=== PATIENT | male | born 1975 | race Hispanic/Latino ===

== ENCOUNTER 2018-02-22 07:57 | Inpatient (IN) | payer MEDICAID ==
[2018-02-22] MEDS ORDERED: Piperacillin/Tazobact 3.375 gm 100 ML IVPB STA (08:35)
--- NOTE | 2018-02-22 08:45 | C.PDOC ---
History Of Present Illness 42 y/o male with history of Cardiac Disease and MRSA to right lateral calf presents to ED with complaints of redness and swelling to right knee. Patient states symptoms started as a pimple that popped, developed redness and pain increased. Patient denies fever, sob, numbness or any other complaints at this time. Time Seen by Provider: 02/22/18 08:25 Chief Complaint (Nursing): Lower Extremity Problem/Injury History Per: Patient History/Exam Limitations: no limitations Onset/Duration Of Symptoms: Days Current Symptoms Are (Timing): Still Present Past Medical History Reviewed: Historical Data, Nursing Documentation, Vital Signs Vital Signs: Last Vital Signs Temp 99 F 02/22/18 11:04 Pulse 76 02/22/18 11:04 Resp 18 02/22/18 11:04 BP 135/82 02/22/18 11:04 Pulse Ox 99 02/22/18 11:04 - Medical History PMH: Hepatitis, HTN Surgical History: Coronary Stent - [facility] Procedures DRUG DETOXIFICATION (04/17/15) Family History: States: No Known Family Hx - Social History Hx Tobacco Use: Yes Hx Alcohol Use: No Hx Substance Use: Yes (Heroine) - Immunization History Hx Tetanus Toxoid Vaccination: Yes Hx Influenza Vaccination: Yes Hx Pneumococcal Vaccination: Yes Review Of Systems Constitutional: Negative for: Fever, Chills Musculoskeletal: Positive for: Leg Pain Skin: Negative for: Rash Neurological: Negative for: Weakness, Numbness Physical Exam - Physical Exam Appears: Non-toxic, No Acute Distress Skin: Warm, Dry, No Rash, Other (pustule on right proximal laeral knee with erythema and warm extending proximally and to lateral calf. ) Head: Atraumatic, Normacephalic Oral Mucosa: Moist Neck: Normal ROM, Supple Cardiovascular: Rhythm Regular Respiratory: Normal Breath Sounds, No Rales, No Rhonchi, No Wheezing Extremity: No Normal ROM (decreased rom right knee due to pain, able to flex to approx 90 degrees), No Calf Tenderness, No Deformity, Swelling (Right knee) Pulses: Left Dorsalis Pedis: Normal, Right Dorsalis Pedis: Normal Neurological/Psych: Oriented x3, Normal Motor, Normal Sensation Gait: Steady ED Course And Treatment - Laboratory Results Result Diagrams: 02/22/18 09:01 02/22/18 09:01 O2 Sat by Pulse Oximetry: 98 (RA) Progress Note: Blood work ordered. Blood culture sent. Vancomycin and Pieperacillina administered Medical Decision Making Medical Decision Making: erythema, swelling and warmth to right knee- labs, bc, antibiotics [address] Mirza, will admit to his service. [id number] Pt's counselor (Marty) at [facility] aware pt is being admitted; pt needs to bring all discharge paperwork back to [facility] upon discharge. Disposition Discussed With Dr.: Sofya Mirza Doctor Will See Patient In The: Hospital - Disposition Disposition: HOSPITALIZED Disposition Time: 10:30 Condition: STABLE - Clinical Impression Clinical Impression: Cellulitis of right knee - PA / TORNADO CHASER / Resident Statement MD/DO has reviewed & agrees with the documentation as recorded. - Scribe Statement The provider has reviewed the documentation as recorded by the Scribyelena Hernandez All medical record entries made by the Finnibyelena were at my direction and personally dictated by me. I have reviewed the chart and agree that the record accurately reflects my personal performance of the history, physical exam, medical decision making, and the department course for this patient. I have also personally directed, reviewed, and agree with the discharge instructions and disposition.
[2018-02-22] MEDS ORDERED: Piperacillin/Tazobact 3.375 gm 100 ML IVPB ONE (09:01)
[2018-02-22 09:06] LABS: BASO % 0.4 % (0.0-2.0); EOS # 0.1 K/uL (0.0-0.7); EOS % 1.2 % (0.0-4.0); LYMPH # 2.2 K/uL (1.0-4.3); LYMPH % 21.2 % (20.0-40.0); MEAN CELL VOLUME 84.8 fL (80.0-94.0); MEAN CORPUSCULAR HEMOGLOBIN 28.7 pg (27.0-31.0); MEAN CORPUSCULAR HGB CONC 33.9 g/dL (33.0-37.0); MEAN PLATELET VOLUME 8.3 fL (7.2-11.7); MONO # 0.8 K/uL (0.0-0.8); NEUT # 7.3 K/uL (1.8-7.0); NEUT % 69.2 % (50.0-75.0); NRBC % 0.1 % (0.0-2.0); RBC 5.18 Mil/uL (4.40-5.90)
[2018-02-22 09:12] LABS: WHITE BLOOD COUNT 10.6 K/uL (4.8-10.8)
[2018-02-22 09:13] LABS: HEMOGLOBIN 14.9 g/dL (12.0-18.0)
[2018-02-22 09:18] LABS: ALB/GLOB RATIO 1.2 (1.0-2.1); ALBUMIN 4.1 g/dL (3.5-5.0); ALT/SGPT 39 U/L (21-72); AST/SGOT 29 U/L (17-59); BLOOD UREA NITROGEN 12 mg/dL (9-20); GFR AFRICAN-AMERICAN > 60; GFR NON-AFRICAN AMERICAN > 60
[2018-02-22] MEDS ORDERED: Vancomycin 1 gm/NS 200 ml 1 GM/200 ML BAG IVPB ONE (09:30)
[2018-02-22 12:49] VITALS: RESP 20
[2018-02-22] MEDS ORDERED: Oxycodone/Acetaminophen 5/325 mg Tab PO PRN (16:25)
[2018-02-22] MEDS ORDERED: Sodium Chloride 0.9% 1,000 ML IV ONE (16:27)
--- NOTE | 2018-02-22 18:39 | CP.PCM.CON ---
History of Present Illness - History of Present Illness History of Present Illness: 42 y/o male with history of Cardiac Disease and MRSA to right lateral calf presents to ED with complaints of redness and swelling to right knee. Patient states symptoms started as a pimple that popped, developed redness and pain increased. Patient denies fever, sob, numbness or any other complaints at this time. - Medical History PMH: Hepatitis, HTN Surgical History: Coronary Stent Review of Systems - Review of Systems All systems: reviewed and no additional remarkable complaints except - Constitutional Constitutional: As Per HPI - EENT Eyes: absent: As Per HPI, Blind Spots, Blurred Vision, Change in Vision, Decreased Night Vision, Diplopia, Discharge, Dry Eye, Exophthalmos, Floaters, Irritation, Itchy Eyes, Loss of Peripheral Vision, Pain, Photophobia, Requires Corrective Lenses, Sees Flashes, Spots in Vision, Tunnel Vision, Other Visual Disturbances, Loss of Vision, Other Ears: absent: As Per HPI, Decreased Hearing, Ear Discharge, Ear Pain, Tinnitus, Abnormal Hearing, Disequilibrium, Dizziness, Other Nose/Mouth/Throat: absent: As Per HPI, Epistaxis, Nasal Congestion, Nasal Discharge, Nasal Obstruction, Nasal Trauma, Nose Pain, Post Nasal Drip, Sinus Pain, Sinus Pressure, Bleeding Gums, Change in Voice, Dental Pain, Dry Mouth, Dysphagia, Halitosis, Hoarsness, Lip Swelling, Mouth Lesions, Mouth Pain, Odynophagia, Sore Throat, Throat Swelling, Tongue Swelling, Facial Pain, Neck Pain, Neck Mass, Other - Cardiovascular Cardiovascular: absent: As Per HPI, Acrocyanosis, Chest Pain, Chest Pain at Rest , Chest Pain with Activity, Claudication, Diaphoresis, Dyspnea, Dyspnea on Exertion, Edema, Irregular Heart Rhythm, Pain Radiating to Arm/Neck/Jaw, Leg Edema, Leg Ulcers, Lightheadedness, Orthopnea, Palpitations, Paroxysmal Nocturnal Dyspnea, Pedal Edema, Radiating Pain, Rapid Heart Rate, Slow Heart Rate, Syncope, Other - Respiratory Respiratory: absent: As Per HPI, Cough, Dyspnea, Hemoptysis, Dyspnea on Exertion , Wheezing, Snoring, Stridor, Pain on Inspiration, Chest Congestion, Excessive Mucous Production, Change in Mucous Color, Pain with Coughing, Other - Gastrointestinal Gastrointestinal: absent: As Per HPI, Abdominal Pain, Belching, Bloating, Change in Bowel Habits, Change in Stool Character, Coffee Ground Emesis, Constipation, Cramping, Diarrhea, Dyspepsia, Dysphagia, Early Satiety, Excessive Flatus, Fecal Incontinence, Heartburn, Hematemesis, Hematochezia, Loose Stools, Melena, Nausea, Odynophagia, Temesmus, Vomiting, Other - Genitourinary Genitourinary: absent: As Per HPI, Change in Urinary Stream, Difficulty Urinating, Dysuria, Flank Pain, Hematuria, Pyuria, Nocturia, Urinary Incontinence, Urinary Frequency, Urinary Hesitance, Urinary Urgency, Voiding Freq/Small Amts, Freq UTI, Hx Renal/Bladder Calculi, Hx /Renal Surgery, Bladder Distension, Other - Musculoskeletal Musculoskeletal: As Per HPI - Integumentary Integumentary: As Per HPI, Skin Pain, Wounds - Neurological Neurological: absent: As Per HPI, Abnormal Gait, Abnormal Hearing, Abnormal Movements, Abnormal Speech, Behavioral Changes, Burning Sensations, Confusion, Convulsions, Disequilibrium, Dizziness, Numbness, Focal Weakness, Frequent Falls , Headaches, Lack of Coordination, Loss of Vision, Memory Loss, Paresthesias, Radicular Pain, Restless Legs, Sensory Deficit, Syncope, Tingling, Tremor, Vertigo, Weakness, Other Visual Disturbances, Other - Psychiatric Psychiatric: absent: As Per HPI, Abnormal Sleep Pattern, Anhedonia, Anxiety, Auditory Hallucinations, Behavioral Changes, Change in Appetite, Change in Libido, Confusion, Depression, Difficulty Concentrating, Hallucinations, Homicidal Ideation, Hopelessness, Irritability, Memory Loss, Mood Swings, Panic Attacks, Paranoia, Suicidal Ideation, Visual Hallucinations, Tactile Hallucinations, Other - Endocrine Endocrine: absent: As Per HPI, Change in Body Appearance, Change in Libido, Cold Intolorance, Deepening of Voice, Excessive Sweating, Fatigue, Flushing, Heat Intolorance, Increase in Ring/Shoe/Hat Size, Palpitations, Polydipsia, Polyphagia, Polyuria, Other - Hematologic/Lymphatic Hematologic: absent: As Per HPI, Easy Bleeding, Easy Bruising, Lymphadenopathy, Other Past Patient History - Past Social History Smoking Status: Current Some Days Smoker - CARDIAC Hx Hypertension: Yes - PULMONARY Hx Tuberculosis: No - NEUROLOGICAL Hx Seizures: No - HEENT Hx HEENT Problems: No - RENAL Hx Chronic Kidney Disease: No - ENDOCRINE/METABOLIC Hx Endocrine Disorders: No - HEMATOLOGICAL/ONCOLOGICAL Hx Cancer: No Hx Human Immunodeficiency Virus (HIV): No - INTEGUMENTARY Hx Dermatological Problems: No Other/Comment: MRSA Rt. lower leg - MUSCULOSKELETAL/RHEUMATOLOGICAL Hx Musculoskeletal Disorders: No Hx Falls: No - GASTROINTESTINAL Hx Gastrointestinal Disorders: No - GENITOURINARY/GYNECOLOGICAL Hx Sexually Transmitted Disorders: No - PSYCHIATRIC Hx Substance Use: Yes (Heroine) - SURGICAL HISTORY Hx Coronary Stent: Yes - ANESTHESIA Hx Anesthesia: No Hx Anesthesia Reactions: No Meds Allergies/Adverse Reactions: Allergies Allergy/AdvReac Type Severity Reaction Status Date / Time No Known Allergies Allergy Verified 02/22/18 08:19 - Medications Medications: Current Medications Heparin Sodium (Porcine) (Heparin) 5,000 units SC Q12 [facility]MAAN Sodium Chloride (Sodium Chloride 0.9%) 1,000 mls @ 100 mls/hr IV .Q10H ONE Stop: 02/23/18 02:26 Last Admin: 02/22/18 16:46 Dose: 100 mls/hr Ketorolac Tromethamine (Toradol) 30 mg IVP Q6H ARMAAN Last Admin: 02/22/18 16:59 Dose: 30 mg Lorazepam (Ativan) 1 mg IVP Q6H PRN PRN Reason: Anxiety Physical Exam - Constitutional Appears: Non-toxic, Chronically Ill - Head Exam Head Exam: NORMOCEPHALIC - Eye Exam Eye Exam: absent: Scleral icterus - ENT Exam ENT Exam: Mucous Membranes Dry - Neck Exam Neck exam: Negative for: Lymphadenopathy - Respiratory Exam Respiratory Exam: Decreased Breath Sounds - Cardiovascular Exam Cardiovascular Exam: REGULAR RHYTHM - GI/Abdominal Exam GI & Abdominal Exam: Diminished Bowel Sounds, Soft. absent: Tenderness - Rectal Exam Rectal Exam: Deferred - Extremities Exam Extremities exam: Positive for: pedal pulses present. Negative for: calf tenderness, normal inspection, pedal edema, tenderness Additional comments: swelling right leg/knee - abscess / cellulitis - Back Exam Back exam: absent: CVA tenderness (L), CVA tenderness (R) - Neurological Exam Neurological exam: Alert, CN II-XII Intact, Oriented x3, Reflexes Normal - Psychiatric Exam Psychiatric exam: Normal Mood - Skin Skin Exam: Dry Results - Vital Signs Recent Vital Signs: Last Vital Signs Temp 100 F H 02/22/18 16:00 Pulse 86 02/22/18 16:00 Resp 20 02/22/18 16:00 BP 115/71 02/22/18 16:00 Pulse Ox 96 02/22/18 16:00 - Labs Result Diagrams: 02/22/18 09:01 02/22/18 09:01 Labs: Laboratory Results - last 24 hr 02/22/18 02/22/18 09:01 09:01 WBC 10.6 D RBC 5.18 Hgb 14.9 D Hct 43.9 MCV 84.8 MCH 28.7 MCHC 33.9 RDW 13.0 Plt Count 195 MPV 8.3 Neut % (Auto) 69.2 Lymph % (Auto) 21.2 [place] % (Auto) 8.0 Eos % (Auto) 1.2 Baso % (Auto) 0.4 Neut # (Auto) 7.3 H Lymph # (Auto) 2.2 [place] # (Auto) 0.8 Eos # (Auto) 0.1 Baso # (Auto) 0.0 Sodium 142 Potassium 4.4 Chloride 103 Carbon Dioxide 27 Anion Gap 16 BUN 12 Creatinine 0.8 Est GFR ( Amer) > 60 Est GFR (Non-Af Amer) > 60 Random Glucose 83 Calcium 9.0 Total Bilirubin 1.1 AST 29 ALT 39 Alkaline Phosphatase 74 Total Protein 7.6 Albumin 4.1 Globulin 3.5 Albumin/Globulin Ratio 1.2 Assessment & Plan (1) Cellulitis of right knee Status: Acute (2) Drug dependence Status: Acute (3) Hepatitis C Status: Acute (4) History of PR (myocardial infarction) Status: Acute (5) Opioid dependence Status: Acute - Assessment and Plan (Free Text) Assessment: cont IV antibiotics needs I and D
--- NOTE | 2018-02-22 18:49 | CP.PCM.HP ---
Present on Admission - Present on Admission Any Indicators Present on Admission: No Past Patient History - Past Social History Smoking Status: Current Some Days Smoker - CARDIAC Hx Hypertension: Yes - PULMONARY Hx Tuberculosis: No - NEUROLOGICAL Hx Seizures: No - HEENT Hx HEENT Problems: No - RENAL Hx Chronic Kidney Disease: No - ENDOCRINE/METABOLIC Hx Endocrine Disorders: No - HEMATOLOGICAL/ONCOLOGICAL Hx Cancer: No Hx Human Immunodeficiency Virus (HIV): No - INTEGUMENTARY Hx Dermatological Problems: No Other/Comment: MRSA Rt. lower leg - MUSCULOSKELETAL/RHEUMATOLOGICAL Hx Musculoskeletal Disorders: No Hx Falls: No - GASTROINTESTINAL Hx Gastrointestinal Disorders: No - GENITOURINARY/GYNECOLOGICAL Hx Sexually Transmitted Disorders: No - PSYCHIATRIC Hx Substance Use: Yes (Heroine) - SURGICAL HISTORY Hx Coronary Stent: Yes - ANESTHESIA Hx Anesthesia: No Hx Anesthesia Reactions: No Meds Allergies/Adverse Reactions: Allergies Allergy/AdvReac Type Severity Reaction Status Date / Time No Known Allergies Allergy Verified 02/22/18 08:19 Results - Vital Signs Recent Vital Signs: Last Vital Signs Temp 100 F H 02/22/18 16:00 Pulse 86 02/22/18 16:00 Resp 20 02/22/18 16:00 BP 115/71 02/22/18 16:00 Pulse Ox 96 02/22/18 16:00 - Labs Result Diagrams: 02/22/18 09:01 02/22/18 09:01 Labs: Laboratory Results - last 24 hr 02/22/18 02/22/18 09:01 09:01 WBC 10.6 D RBC 5.18 Hgb 14.9 D Hct 43.9 MCV 84.8 MCH 28.7 MCHC 33.9 RDW 13.0 Plt Count 195 MPV 8.3 Neut % (Auto) 69.2 Lymph % (Auto) 21.2 [place]ett[place] % (Auto) 8.0 Eos % (Auto) 1.2 Baso % (Auto) 0.4 Neut # (Auto) 7.3 H Lymph # (Auto) 2.2 [place] # (Auto) 0.8 Eos # (Auto) 0.1 Baso # (Auto) 0.0 Sodium 142 Potassium 4.4 Chloride 103 Carbon Dioxide 27 Anion Gap 16 BUN 12 Creatinine 0.8 Est GFR ( Amer) > 60 Est GFR (Non-Af Amer) > 60 Random Glucose 83 Calcium 9.0 Total Bilirubin 1.1 AST 29 ALT 39 Alkaline Phosphatase 74 Total Protein 7.6 Albumin 4.1 Globulin 3.5 Albumin/Globulin Ratio 1.2 Assessment & Plan - Assessment and Plan (Free Text) Plan: protonix lovenox vanco zosyn id consult mx as ordered
[2018-02-22] MEDS: Vancomycin 1 gm/NS 200 ml 1 GM/200 ML BAG IVPB SCH (23:21)
[2018-02-23 07:42] LABS: BASO % 0.4 % (0.0-2.0); EOS # 0.1 K/uL (0.0-0.7); EOS % 0.7 % (0.0-4.0); HEMOGLOBIN 13.6 g/dL (12.0-18.0); LYMPH # 2.1 K/uL (1.0-4.3); LYMPH % 21.9 % (20.0-40.0); MEAN CELL VOLUME 84.5 fL (80.0-94.0); MEAN CORPUSCULAR HEMOGLOBIN 29.2 pg (27.0-31.0); MEAN CORPUSCULAR HGB CONC 34.5 g/dL (33.0-37.0); MEAN PLATELET VOLUME 8.4 fL (7.2-11.7); MONO # 0.7 K/uL (0.0-0.8); MONO % 7.5 % (0.0-10.0); NEUT # 6.5 K/uL (1.8-7.0); NEUT % 69.5 % (50.0-75.0); RBC 4.68 Mil/uL (4.40-5.90); RED CELL DISTRIBUTION WIDTH 12.8 % (11.5-14.5); WHITE BLOOD COUNT 9.4 K/uL (4.8-10.8)
[2018-02-23 08:06] LABS: ALB/GLOB RATIO 1.1 (1.0-2.1); ALBUMIN 3.5 g/dL (3.5-5.0); ALT/SGPT 39 U/L (21-72); AST/SGOT 22 U/L (17-59); BLOOD UREA NITROGEN 10 mg/dL (9-20); CALCIUM 8.4 mg/dl (8.6-10.4); GFR AFRICAN-AMERICAN > 60; GFR NON-AFRICAN AMERICAN > 60
[2018-02-23] MEDS: Vancomycin 1 gm/NS 200 ml 1 GM/200 ML BAG IVPB SCH ×2 (10:04→22:37)
--- NOTE | 2018-02-23 14:47 | CP.PCM.PN ---
Subjective - Date & Time of Evaluation Date of Evaluation: 02/23/18 Time of Evaluation: 09:20 - Subjective Subjective: clinically same Objective - Vital Signs/Intake and Output Vital Signs (last 24 hours): Temp Pulse Resp BP Pulse Ox 98.1 F 102 H 20 131/89 97 02/23/18 08:15 02/23/18 08:15 02/23/18 08:15 02/23/18 08:15 02/23/18 13:34 - Medications Medications: Current Medications Heparin Sodium (Porcine) (Heparin) 5,000 units SC Q12 ARMAAN Last Admin: 02/23/18 10:04 Dose: 5,000 units Vancomycin/Sodium Chloride (Vancomycin 1 Gm/Ns 200 Ml) 1 gm in 200 mls @ 133.333 mls/hr IVPB Q12H ARMAAN PRN Reason: Protocol Stop: 02/27/18 23:01 Last Admin: 02/23/18 10:04 Dose: 133.333 mls/hr Ketorolac Tromethamine (Toradol) 30 mg IVP Q6H [facility]MA[facility] Last Admin: 02/23/18 10:05 Dose: 30 mg Lorazepam (Ativan) 1 mg IVP Q6H PRN PRN Reason: Anxiety Nicotine (Nicoderm Cq) 1 patch TD DAILY [facility] Last Admin: 02/23/18 10:04 Dose: 1 patch - Labs Labs: 02/23/18 07:30 02/23/18 07:30 - Constitutional Appears: Well - Head Exam Head Exam: ATRAUMATIC, NORMAL INSPECTION, NORMOCEPHALIC - Eye Exam Eye Exam: EOMI, Normal appearance, PERRL Pupil Exam: NORMAL ACCOMODATION, PERRL - ENT Exam ENT Exam: Mucous Membranes Moist, Normal Exam - Neck Exam Neck Exam: Full ROM, Normal Inspection. absent: Lymphadenopathy - Respiratory Exam Respiratory Exam: Decreased Breath Sounds - Cardiovascular Exam Cardiovascular Exam: REGULAR RHYTHM, +S1, +S2 - GI/Abdominal Exam GI & Abdominal Exam: Soft, Diminished Bowel Sounds - Rectal Exam Rectal Exam: Deferred Assessment and Plan - Assessment and Plan (Free Text) Plan: swelling and redness is better May need IND as per Dr. Rae Continue vancomycin Continue GI and DVT prophylaxis Patient has improved significantly
--- NOTE | 2018-02-23 15:32 | CP.PCM.PN ---
Subjective - Date & Time of Evaluation Date of Evaluation: 02/23/18 Time of Evaluation: 09:00 - Subjective Subjective: cultures neg thus far' may need I and D Objective - Vital Signs/Intake and Output Vital Signs (last 24 hours): Temp Pulse Resp BP Pulse Ox 98.1 F 102 H 20 131/89 97 02/23/18 08:15 02/23/18 08:15 02/23/18 08:15 02/23/18 08:15 02/23/18 13:34 - Medications Medications: Current Medications Heparin Sodium (Porcine) (Heparin) 5,000 units SC Q12 [facility]MA[facility] Last Admin: 02/23/18 10:04 Dose: 5,000 units Vancomycin/Sodium Chloride (Vancomycin 1 Gm/Ns 200 Ml) 1 gm in 200 mls @ 133.333 mls/hr IVPB Q12H [facility]MAAN PRN Reason: Protocol Stop: 02/27/18 23:01 Last Admin: 02/23/18 10:04 Dose: 133.333 mls/hr Ketorolac Tromethamine (Toradol) 30 mg IVP Q6H [facility]MA[facility] Last Admin: 02/23/18 10:05 Dose: 30 mg Lorazepam (Ativan) 1 mg IVP Q6H PRN PRN Reason: Anxiety Nicotine (Nicoderm Cq) 1 patch TD DAILY [facility] Last Admin: 02/23/18 10:04 Dose: 1 patch - Labs Labs: 02/23/18 07:30 02/23/18 07:30 - Constitutional Appears: Non-toxic, Chronically Ill - Head Exam Head Exam: NORMOCEPHALIC - Eye Exam Eye Exam: PERRL - ENT Exam ENT Exam: Mucous Membranes Dry Assessment and Plan (1) Cellulitis of right knee Status: Acute (2) Drug dependence Status: Acute (3) Hepatitis C Status: Acute (4) History of [place] (myocardial infarction) Status: Acute (5) Opioid dependence Status: Acute
[2018-02-24 06:47] LABS: BASO % 0.6 % (0.0-2.0); EOS # 0.1 K/uL (0.0-0.7); EOS % 1.9 % (0.0-4.0); HEMOGLOBIN 13.5 g/dL (12.0-18.0); LYMPH # 1.6 K/uL (1.0-4.3); LYMPH % 21.3 % (20.0-40.0); MEAN CELL VOLUME 83.8 fL (80.0-94.0); MEAN CORPUSCULAR HGB CONC 35.8 g/dL (33.0-37.0); MEAN PLATELET VOLUME 8.2 fL (7.2-11.7); MONO # 0.6 K/uL (0.0-0.8); MONO % 8.5 % (0.0-10.0); NEUT # 5.1 K/uL (1.8-7.0); NEUT % 67.7 % (50.0-75.0); RBC 4.49 Mil/uL (4.40-5.90); WHITE BLOOD COUNT 7.6 K/uL (4.8-10.8)
[2018-02-24 07:14] LABS: ALB/GLOB RATIO 1.1 (1.0-2.1); ALBUMIN 3.5 g/dL (3.5-5.0); ALT/SGPT 39 U/L (21-72); AST/SGOT 31 U/L (17-59); BLOOD UREA NITROGEN 10 mg/dL (9-20); CALCIUM 8.7 mg/dl (8.6-10.4); GFR AFRICAN-AMERICAN > 60; GFR NON-AFRICAN AMERICAN > 60
[2018-02-24] MEDS: Vancomycin 1 gm/NS 200 ml 1 GM/200 ML BAG IVPB SCH ×2 (10:46→22:16)
--- NOTE | 2018-02-24 12:44 | CP.PCM.PN ---
Subjective - Date & Time of Evaluation Date of Evaluation: 02/24/18 Time of Evaluation: 08:00 - Subjective Subjective: improved swelling adn redness Objective - Vital Signs/Intake and Output Vital Signs (last 24 hours): Temp Pulse Resp BP Pulse Ox 98.9 F 67 20 118/76 96 02/24/18 07:51 02/24/18 07:51 02/24/18 07:51 02/24/18 07:51 02/24/18 08:03 Intake and Output: 02/24/18 02/24/18 06:59 18:59 Intake Total 500 240 Balance 500 240 - Medications Medications: Current Medications Heparin Sodium (Porcine) (Heparin) 5,000 units SC Q12 [facility]MAAN Last Admin: 02/24/18 10:41 Dose: 5,000 units Vancomycin/Sodium Chloride (Vancomycin 1 Gm/Ns 200 Ml) 1 gm in 200 mls @ 133.333 mls/hr IVPB Q12H [facility] PRN Reason: Protocol Stop: 02/27/18 23:01 Last Admin: 02/24/18 10:46 Dose: 133.333 mls/hr Ketorolac Tromethamine (Toradol) 30 mg IVP Q6H [facility] Last Admin: 02/24/18 10:41 Dose: 30 mg Lorazepam (Ativan) 1 mg IVP Q6H PRN PRN Reason: Anxiety Nicotine (Nicoderm Cq) 1 patch TD DAILY [facility] Last Admin: 02/24/18 10:41 Dose: 1 patch - Labs Labs: 02/24/18 06:37 02/24/18 06:37 - Constitutional Appears: Well - Head Exam Head Exam: ATRAUMATIC, NORMAL INSPECTION, NORMOCEPHALIC - Eye Exam Eye Exam: EOMI, Normal appearance, PERRL Pupil Exam: NORMAL ACCOMODATION, PERRL - ENT Exam ENT Exam: Mucous Membranes Moist, Normal Exam - Neck Exam Neck Exam: Full ROM, Normal Inspection. absent: Lymphadenopathy - Respiratory Exam Respiratory Exam: Decreased Breath Sounds - Cardiovascular Exam Cardiovascular Exam: REGULAR RHYTHM, +S1, +S2 - GI/Abdominal Exam GI & Abdominal Exam: Soft, Diminished Bowel Sounds - Rectal Exam Rectal Exam: Deferred Assessment and Plan (1) Cellulitis of right knee Status: Acute (2) Chest pain Status: Acute (3) Drug abuse Status: Acute (4) Drug dependence Status: Acute (5) Hepatitis C Status: Acute (6) History of [place] (myocardial infarction) Status: Acute (7) Hypertension Status: Acute (8) Opioid dependence Status: Acute - Assessment and Plan (Free Text) Plan: iv vanco vanco level asper id coti same dischargeplanning may need iv vanco for 12 days zion as ordered will followupw ith id
--- NOTE | 2018-02-24 14:33 | CP.PCM.PN ---
Subjective - Date & Time of Evaluation Date of Evaluation: 02/24/18 Time of Evaluation: 09:00 - Subjective Subjective: leg is swollen warm and tender may need I and D Objective - Vital Signs/Intake and Output Vital Signs (last 24 hours): Temp Pulse Resp BP Pulse Ox 98.9 F 67 20 118/76 96 02/24/18 07:51 02/24/18 07:51 02/24/18 07:51 02/24/18 07:51 02/24/18 08:03 Intake and Output: 02/24/18 02/24/18 06:59 18:59 Intake Total 500 240 Balance 500 240 - Medications Medications: Current Medications Heparin Sodium (Porcine) (Heparin) 5,000 units SC Q12 [facility] Last Admin: 02/24/18 10:41 Dose: 5,000 units Vancomycin/Sodium Chloride (Vancomycin 1 Gm/Ns 200 Ml) 1 gm in 200 mls @ 133.333 mls/hr IVPB Q12H [facility] PRN Reason: Protocol Stop: 02/27/18 23:01 Last Admin: 02/24/18 10:46 Dose: 133.333 mls/hr Ketorolac Tromethamine (Toradol) 30 mg IVP Q6H [facility] Last Admin: 02/24/18 10:41 Dose: 30 mg Lorazepam (Ativan) 1 mg IVP Q6H PRN PRN Reason: Anxiety Nicotine (Nicoderm Cq) 1 patch TD DAILY [facility] Last Admin: 02/24/18 10:41 Dose: 1 patch Pneumococcal Polyvalent Vaccine (Pneumovax 23 Vaccine) 0.5 ml IM .ONCE ONE Stop: 02/27/18 10:01 - Labs Labs: 02/24/18 06:37 02/24/18 06:37 - Constitutional Appears: Non-toxic, Chronically Ill - Head Exam Head Exam: NORMOCEPHALIC - Eye Exam Eye Exam: PERRL - ENT Exam ENT Exam: Mucous Membranes Dry - Neck Exam Neck Exam: absent: Lymphadenopathy - Respiratory Exam Respiratory Exam: Decreased Breath Sounds - Cardiovascular Exam Cardiovascular Exam: REGULAR RHYTHM - GI/Abdominal Exam GI & Abdominal Exam: Distended, Soft - Rectal Exam Rectal Exam: Deferred - Exam Exam: NORMAL INSPECTION - Extremities Exam Extremities Exam: Tenderness. absent: Calf Tenderness, Normal Inspection, Pedal Edema - Back Exam Back Exam: absent: CVA tenderness (L), CVA tenderness (R) - Neurological Exam Neurological Exam: Alert, Awake, CN II-XII Intact, Oriented x3 Neuro motor strength exam: Left Upper Extremity: 5, Right Upper Extremity: 5, Left Lower Extremity: 5, Right Lower Extremity: 5 - Psychiatric Exam Psychiatric exam: Normal Mood - Skin Skin Exam: Dry Assessment and Plan (1) Cellulitis of right knee Status: Acute (2) Drug dependence Status: Acute (3) Hepatitis C Status: Acute (4) History of CT (myocardial infarction) Status: Acute (5) Opioid dependence Status: Acute
--- NOTE | 2018-02-24 16:24 | RAD ---
PROCEDURE: Right Knee Radiographs. HISTORY: Right knee abscess COMPARISON: None. FINDINGS: BONES: Normal. No fracture. JOINTS: Normal. No osteoarthritis. JOINT EFFUSION: Small suprapatellar joint effusion. OTHER FINDINGS: None. IMPRESSION: No evidence of acute displaced fracture nor dislocation. Small suprapatellar joint effusion.
[2018-02-25] MEDS: Vancomycin 1 gm/NS 200 ml 1 GM/200 ML BAG IVPB SCH ×2 (10:20→22:25)
--- NOTE | 2018-02-25 17:12 | CP.PCM.PN ---
Subjective - Date & Time of Evaluation Date of Evaluation: 02/25/18 Time of Evaluation: 07:40 - Subjective Subjective: clinically same Objective - Vital Signs/Intake and Output Vital Signs (last 24 hours): Temp Pulse Resp BP Pulse Ox 98.4 F 66 20 127/77 98 02/25/18 15:12 02/25/18 15:12 02/25/18 15:12 02/25/18 15:12 02/25/18 15:12 Intake and Output: 02/25/18 02/25/18 06:59 18:59 Intake Total 1140 600 Balance 1140 600 - Medications Medications: Current Medications Heparin Sodium (Porcine) (Heparin) 5,000 units SC Q12 [facility] Last Admin: 02/25/18 10:20 Dose: 5,000 units Vancomycin/Sodium Chloride (Vancomycin 1 Gm/Ns 200 Ml) 1 gm in 200 mls @ 133.333 mls/hr IVPB Q12H [facility] PRN Reason: Protocol Stop: 02/27/18 23:01 Last Admin: 02/25/18 10:20 Dose: 133.333 mls/hr Ketorolac Tromethamine (Toradol) 30 mg IVP Q6H [facility] Last Admin: 02/25/18 10:21 Dose: 30 mg Lorazepam (Ativan) 1 mg IVP Q6H PRN PRN Reason: Anxiety Nicotine (Nicoderm Cq) 1 patch TD DAILY [facility] Last Admin: 02/25/18 10:20 Dose: 1 patch Pneumococcal Polyvalent Vaccine (Pneumovax 23 Vaccine) 0.5 ml IM .ONCE ONE Stop: 02/27/18 10:01 - Labs Labs: 02/24/18 06:37 02/24/18 06:37 - Constitutional Appears: Well - Head Exam Head Exam: ATRAUMATIC, NORMAL INSPECTION, NORMOCEPHALIC - Eye Exam Eye Exam: EOMI, Normal appearance, PERRL Pupil Exam: NORMAL ACCOMODATION, PERRL - ENT Exam ENT Exam: Mucous Membranes Moist, Normal Exam - Neck Exam Neck Exam: Full ROM, Normal Inspection. absent: Lymphadenopathy - Respiratory Exam Respiratory Exam: Decreased Breath Sounds - Cardiovascular Exam Cardiovascular Exam: REGULAR RHYTHM, +S1, +S2 - GI/Abdominal Exam GI & Abdominal Exam: Soft, Diminished Bowel Sounds - Rectal Exam Rectal Exam: Deferred Assessment and Plan (1) Cellulitis of right knee Status: Acute (2) Chest pain Status: Acute (3) Drug abuse Status: Acute (4) Drug dependence Status: Acute (5) Hepatitis C Status: Acute (6) History of [place] (myocardial infarction) Status: Acute (7) Hypertension Status: Acute (8) Opioid dependence Status: Acute - Assessment and Plan (Free Text) Plan: Patient's knee swelling has significantly got better but patient still has a small patch on on the right in the upper part of the knee the patient needs may need IND although patient is getting better with the vancomycin patient advised that we will plan out for the discharge patient may need IV antibiotic at home continue same follow-up with the surgeon along with ID consult
--- NOTE | 2018-02-26 05:52 | CP.PCM.PN ---
Subjective - Date & Time of Evaluation Date of Evaluation: 02/26/18 Time of Evaluation: 05:48 - Subjective Subjective: PGY-[address] Mirza's service: Pt seen and examined at bedside. Nursing reports no acute events overnight. Patient reports cellulitis much improved since admission. He states he is able to ambulate on the leg without difficulty. He denies fever, chills, pain/ weakness/numbness/tingling in the extremity. Patient is a 42 yo M, with pmhx of HTN, Hep C and [place] with LAD stent placement ( 2012), who presented on 02/22/18 to ED for with complaints of erythema/edema of right knee. Patient states that pain started "approximately a week ago" when he "popped a pimple" on his right knee. Over week the area became increasingly red and painful. Denied fevers/chills, numbness/tingling, or extremity weakness. Pmhx: as above Surg hx: Catheterization (2012) Fam hx: Paternal Grandfather (30's) and Maternal Grandfather (unsure of age) had heart attacks as well as father (30's), Dad and paternal grandfather have prostate ca and colon ca (unsure of age of diagnosis) Social hx: 1/2 ppd of tobacco, occasional drinking, abuses cocaine and heroin Objective - Vital Signs/Intake and Output Vital Signs (last 24 hours): Temp Pulse Resp BP Pulse Ox 98.3 F 71 20 120/77 98 02/25/18 23:48 02/25/18 23:48 02/25/18 23:48 02/25/18 23:48 02/25/18 23:48 Intake and Output: 02/25/18 02/26/18 18:59 06:59 Intake Total 600 700 Balance 600 700 - Medications Medications: Current Medications Ketorolac Tromethamine (Toradol) 30 mg IVP Q6H [facility] Last Admin: 02/26/18 05:05 Dose: Not Given Lorazepam (Ativan) 1 mg IVP Q6H PRN PRN Reason: Anxiety Nicotine (Nicoderm Cq) 1 patch TD DAILY [facility] Last Admin: 02/25/18 10:20 Dose: 1 patch Pneumococcal Polyvalent Vaccine (Pneumovax 23 Vaccine) 0.5 ml IM .ONCE ONE Stop: 02/27/18 10:01 - Labs Labs: 02/24/18 06:37 02/24/18 06:37 - Constitutional Appears: Non-toxic, No Acute Distress - Head Exam Head Exam: ATRAUMATIC, NORMAL INSPECTION - Eye Exam Eye Exam: EOMI. absent: Scleral icterus Pupil Exam: PERRL - ENT Exam ENT Exam: Mucous Membranes Moist - Respiratory Exam Respiratory Exam: Clear to Ausculation Bilateral, NORMAL BREATHING PATTERN - Cardiovascular Exam Cardiovascular Exam: REGULAR RHYTHM, +S1 - GI/Abdominal Exam GI & Abdominal Exam: Soft, Normal Bowel Sounds. absent: Tenderness - Extremities Exam Extremities Exam: absent: Calf Tenderness, Normal Inspection, Pedal Edema, Tenderness Additional comments: Cellulitis outline greatly improved since admission No pain in extremity - Back Exam Back Exam: absent: CVA tenderness (L), CVA tenderness (R) - Neurological Exam Neurological Exam: Alert, Awake, Oriented x3 - Psychiatric Exam Psychiatric exam: Normal Affect, Normal Mood - Skin Skin Exam: Normal Color, Warm Assessment and Plan - Assessment and Plan (Free Text) Plan: Cellulitis of right knee Admit to med/surg Afebrile; No WBC Rt Knee XR (02/24/18): No evidence of acute displaced fx or dislocation. Small suprapatellar joint effusion (see full report) Toradol 30mg IV Q6H [facility] Dr. Maza, ID consultants intern, help appreciated: -Vancomycin 1 gm IV Q12H - May need I&D Blood cultures negative x 3 days Hx HTN Well controlled Pt denies taking home medications EtOH detox Pt was in detox at [facility] prior to admission Ativan 1mg IV Q6H PRN Hx of Hepatitis C Hep C AB positive (2014) Patient denies treatment Tobacco Abuse D/O Nicoderm Patch Prophylaxis SCDs C/I Pepcid 20mg PO BID VTE C/I due to toradol at this time; pt mobile Clifford Mina PGY-2 All Medical management per Dr. Mirza
[2018-02-26] MEDS: Vancomycin 1 gm/NS 200 ml 1 GM/200 ML BAG IVPB SCH ×2 (10:46→22:56)
[2018-02-26 11:06] LABS: BASO % 0.4 % (0.0-2.0); EOS # 0.1 K/uL (0.0-0.7); EOS % 1.7 % (0.0-4.0); HEMOGLOBIN 13.7 g/dL (12.0-18.0); LYMPH # 1.6 K/uL (1.0-4.3); MEAN CELL VOLUME 83.9 fL (80.0-94.0); MEAN CORPUSCULAR HEMOGLOBIN 29.3 pg (27.0-31.0); MEAN CORPUSCULAR HGB CONC 34.9 g/dL (33.0-37.0); MEAN PLATELET VOLUME 8.1 fL (7.2-11.7); MONO # 0.5 K/uL (0.0-0.8); MONO % 7.1 % (0.0-10.0); NEUT # 4.6 K/uL (1.8-7.0); NEUT % 67.8 % (50.0-75.0); RBC 4.66 Mil/uL (4.40-5.90); RED CELL DISTRIBUTION WIDTH 12.6 % (11.5-14.5); WHITE BLOOD COUNT 6.8 K/uL (4.8-10.8)
[2018-02-26 11:22] LABS: ALB/GLOB RATIO 1.1 (1.0-2.1); ALBUMIN 3.6 g/dL (3.5-5.0); ALT/SGPT 33 U/L (21-72); AST/SGOT 29 U/L (17-59); BLOOD UREA NITROGEN 13 mg/dL (9-20); CALCIUM 8.7 mg/dl (8.6-10.4); GFR AFRICAN-AMERICAN > 60; GFR NON-AFRICAN AMERICAN > 60
--- NOTE | 2018-02-26 12:02 | CP.PCM.PN ---
Subjective - Date & Time of Evaluation Date of Evaluation: 02/26/18 Time of Evaluation: 08:00 - Subjective Subjective: nad rx in progress Objective - Vital Signs/Intake and Output Vital Signs (last 24 hours): Temp Pulse Resp BP Pulse Ox 98.0 F 70 20 126/87 97 02/26/18 08:03 02/26/18 08:03 02/26/18 08:03 02/26/18 08:03 02/26/18 08:03 Intake and Output: 02/26/18 02/26/18 06:59 18:59 Intake Total 700 Balance 700 - Medications Medications: Current Medications Famotidine (Pepcid) 20 mg PO BID [facility] Last Admin: 02/26/18 10:48 Dose: Not Given Vancomycin/Sodium Chloride (Vancomycin 1 Gm/Ns 200 Ml) 1 gm in 200 mls @ 166.6 mls/hr IVPB Q12H [facility] PRN Reason: Protocol Stop: 03/03/18 11:01 Last Admin: 02/26/18 10:46 Dose: 166.6 mls/hr Lorazepam (Ativan) 1 mg IVP Q6H PRN PRN Reason: Anxiety Nicotine (Nicoderm Cq) 1 patch TD DAILY [facility] Last Admin: 02/26/18 10:46 Dose: 1 patch Pneumococcal Polyvalent Vaccine (Pneumovax 23 Vaccine) 0.5 ml IM .ONCE ONE Stop: 02/27/18 10:01 - Labs Labs: 02/26/18 10:45 02/26/18 10:45 - Constitutional Appears: Non-toxic, Chronically Ill - Head Exam Head Exam: NORMOCEPHALIC - Eye Exam Eye Exam: PERRL - ENT Exam ENT Exam: Mucous Membranes Dry - Neck Exam Neck Exam: absent: Lymphadenopathy - Respiratory Exam Respiratory Exam: Decreased Breath Sounds - Cardiovascular Exam Cardiovascular Exam: REGULAR RHYTHM - GI/Abdominal Exam GI & Abdominal Exam: Distended Assessment and Plan (1) Cellulitis of right knee Status: Acute (2) Drug dependence Status: Acute (3) Hepatitis C Status: Acute (4) History of [place] (myocardial infarction) Status: Acute (5) Opioid dependence Status: Acute
--- NOTE | 2018-02-26 12:42 | CP.PCM.PN ---
Subjective - Date & Time of Evaluation Date of Evaluation: 02/26/18 Time of Evaluation: 07:40 - Subjective Subjective: clinically same Objective - Vital Signs/Intake and Output Vital Signs (last 24 hours): Temp Pulse Resp BP Pulse Ox 98.0 F 70 20 126/87 97 02/26/18 08:03 02/26/18 08:03 02/26/18 08:03 02/26/18 08:03 02/26/18 08:03 Intake and Output: 02/26/18 02/26/18 06:59 18:59 Intake Total 700 Balance 700 - Medications Medications: Current Medications Famotidine (Pepcid) 20 mg PO BID [facility] Last Admin: 02/26/18 10:48 Dose: Not Given Vancomycin/Sodium Chloride (Vancomycin 1 Gm/Ns 200 Ml) 1 gm in 200 mls @ 166.6 mls/hr IVPB Q12H [facility] PRN Reason: Protocol Stop: 03/03/18 11:01 Last Admin: 02/26/18 10:46 Dose: 166.6 mls/hr Lorazepam (Ativan) 1 mg IVP Q6H PRN PRN Reason: Anxiety Nicotine (Nicoderm Cq) 1 patch TD DAILY [facility] Last Admin: 02/26/18 10:46 Dose: 1 patch Pneumococcal Polyvalent Vaccine (Pneumovax 23 Vaccine) 0.5 ml IM .ONCE ONE Stop: 02/27/18 10:01 - Labs Labs: 02/26/18 10:45 02/26/18 10:45 - Constitutional Appears: Well - Head Exam Head Exam: ATRAUMATIC, NORMAL INSPECTION, NORMOCEPHALIC - Eye Exam Eye Exam: EOMI, Normal appearance, PERRL Pupil Exam: NORMAL ACCOMODATION, PERRL - ENT Exam ENT Exam: Mucous Membranes Moist, Normal Exam - Neck Exam Neck Exam: Full ROM, Normal Inspection. absent: Lymphadenopathy - Respiratory Exam Respiratory Exam: Decreased Breath Sounds - Cardiovascular Exam Cardiovascular Exam: REGULAR RHYTHM, +S1, +S2 - GI/Abdominal Exam GI & Abdominal Exam: Soft, Diminished Bowel Sounds - Rectal Exam Rectal Exam: Deferred Assessment and Plan (1) Cellulitis of right knee Status: Acute (2) Chest pain Status: Acute (3) Drug abuse Status: Acute (4) Drug dependence Status: Acute (5) Hepatitis C Status: Acute (6) History of [place] (myocardial infarction) Status: Acute (7) Hypertension Status: Acute (8) Opioid dependence Status: Acute
--- NOTE | 2018-02-26 17:00 | CP.PCM.CON ---
History of Present Illness - History of Present Illness History of Present Illness: General surgery consult: Dr. Meyers Mr. Ortiz is a 42 year old male with PMHx of OR, hepatitis C, and multiple episodes of cellulitis and abscesses who presented to the ED on 02/22 for evaluation of redness, swelling, and pain of the right knee. He states that one week ago he had an ingrown hair that turned into a pimple which he attempted to "pop the patel." Subsequently it became painful, red, and swollen. Since admission for right knee cellulitis, he was given IV antibiotics. At the time of examination, his only complaint is that he has stiffness and mild pain with right knee flexion. He believes he is improving since admission. He denies fever /chills, chest pain, palpitations, shortness of breath. He reports redness and stiffness to the right knee and denies any drainage. PMHx: [place] (2012), hepatitis C, multiple episodes of cellulitis and abscesses PSHx: stent x1 in LAD (2012), surgical debridement of right lateral leg wound Allergies: NKDA Social Hx: current smoker (1 ppd since age 13); former IV heroin (previously average 5-6 bags daily), IV cocaine (previously average $50-60 worth daily), alcohol use (previously average 10 beers daily) -- self-reported "clean for 39 days" Review of Systems - Review of Systems All systems: reviewed and no additional remarkable complaints except (as per HPI ) Past Patient History - Past Medical History & Family History Past Medical History?: Yes - Past Social History Smoking Status: Current Some Days Smoker - CARDIAC Hx Hypertension: Yes - PULMONARY Hx Tuberculosis: No - NEUROLOGICAL Hx Seizures: No - HEENT Hx HEENT Problems: No - RENAL Hx Chronic Kidney Disease: No - ENDOCRINE/METABOLIC Hx Endocrine Disorders: No - HEMATOLOGICAL/ONCOLOGICAL Hx Cancer: No Hx Human Immunodeficiency Virus (HIV): No - INTEGUMENTARY Hx Dermatological Problems: No Other/Comment: MRSA Rt. lower leg - MUSCULOSKELETAL/RHEUMATOLOGICAL Hx Falls: No - GASTROINTESTINAL Hx Gastrointestinal Disorders: No - GENITOURINARY/GYNECOLOGICAL Hx Sexually Transmitted Disorders: No - PSYCHIATRIC Hx Substance Use: Yes (Heroine) - SURGICAL HISTORY Hx Coronary Stent: Yes - ANESTHESIA Hx Anesthesia: No Hx Anesthesia Reactions: No Meds Allergies/Adverse Reactions: Allergies Allergy/AdvReac Type Severity Reaction Status Date / Time No Known Allergies Allergy Verified 02/22/18 08:19 - Medications Medications: Current Medications Famotidine (Pepcid) 20 mg PO BID [facility] Last Admin: 02/26/18 10:48 Dose: Not Given Vancomycin/Sodium Chloride (Vancomycin 1 Gm/Ns 200 Ml) 1 gm in 200 mls @ 166.6 mls/hr IVPB Q12H [facility] PRN Reason: Protocol Stop: 03/03/18 11:01 Last Admin: 02/26/18 10:46 Dose: 166.6 mls/hr Lorazepam (Ativan) 1 mg IVP Q6H PRN PRN Reason: Anxiety Nicotine (Nicoderm Cq) 1 patch TD DAILY [facility] Last Admin: 02/26/18 10:46 Dose: 1 patch Pneumococcal Polyvalent Vaccine (Pneumovax 23 Vaccine) 0.5 ml IM .ONCE ONE Stop: 02/27/18 10:01 Physical Exam - Constitutional Appears: Well, Non-toxic, No Acute Distress - Head Exam Head Exam: ATRAUMATIC, NORMOCEPHALIC - Eye Exam Eye Exam: Normal appearance - ENT Exam ENT Exam: Mucous Membranes Moist - Respiratory Exam Respiratory Exam: Clear to Auscultation Bilateral, NORMAL BREATHING PATTERN. absent: Rales, Rhonchi, Wheezes, Respiratory Distress - Cardiovascular Exam Cardiovascular Exam: REGULAR RHYTHM, RRR, +S1, +S2. absent: Diastolic murmur, Systolic Murmur - Extremities Exam Additional comments: right knee: warm, erythematous, no fluctuance, no active drainage noted, full range of motion - Neurological Exam Neurological exam: Alert, Oriented x3 Additional comments: sensation intact bilaterally in L2-S1 dermatomes - Psychiatric Exam Psychiatric exam: Normal Affect, Normal Mood - Skin Skin Exam: Dry, Warm Results - Vital Signs Recent Vital Signs: Last Vital Signs Temp 98.6 F 02/26/18 15:00 Pulse 65 02/26/18 15:00 Resp 20 02/26/18 15:00 BP 132/83 02/26/18 15:00 Pulse Ox 98 02/26/18 15:00 - Labs Result Diagrams: 02/26/18 10:45 02/26/18 10:45 Labs: Laboratory Results - last 24 hr 02/26/18 02/26/18 10:45 10:45 WBC 6.8 RBC 4.66 Hgb 13.7 Hct 39.1 MCV 83.9 MCH 29.3 MCHC 34.9 RDW 12.6 Plt Count 202 MPV 8.1 Neut % (Auto) 67.8 Lymph % (Auto) 23.0 Cobb % (Auto) 7.1 Eos % (Auto) 1.7 Baso % (Auto) 0.4 Neut # (Auto) 4.6 Lymph # (Auto) 1.6 Cobb # (Auto) 0.5 Eos # (Auto) 0.1 Baso # (Auto) 0.0 Sodium 140 Potassium 4.4 Chloride 105 Carbon Dioxide 24 Anion Gap 15 BUN 13 Creatinine 0.8 Est GFR ( Amer) > 60 Est GFR (Non-Af Amer) > 60 Random Glucose 104 Calcium 8.7 Phosphorus 3.3 Magnesium 2.0 Total Bilirubin 0.7 AST 29 ALT 33 Alkaline Phosphatase 66 Total Protein 6.9 Albumin 3.6 Globulin 3.4 Albumin/Globulin Ratio 1.1 - Imaging and Cardiology Knee x-ray Status: Image reviewed by me, Report reviewed by me Assessment & Plan - Assessment and Plan (Free Text) Assessment: 42 year old male with right knee cellulitis Plan: Recommend warm compresses to the site at this time. Overall, the erythema is much reduced as per marked area around R knee No fluctuance that can be drained right now & will re-eval need for I&D in a day or so Continue antibiotics per primary team d/w Dr. Luigi Hernandez, PGY3
[2018-02-27 08:08] LABS: BASO # 0.1 K/uL (0.0-0.2); BASO % 0.8 % (0.0-2.0); EOS # 0.2 K/uL (0.0-0.7); EOS % 2.9 % (0.0-4.0); HEMOGLOBIN 13.8 g/dL (12.0-18.0); LYMPH # 1.6 K/uL (1.0-4.3); MEAN CELL VOLUME 83.2 fL (80.0-94.0); MEAN CORPUSCULAR HEMOGLOBIN 29.3 pg (27.0-31.0); MEAN CORPUSCULAR HGB CONC 35.2 g/dL (33.0-37.0); MEAN PLATELET VOLUME 7.9 fL (7.2-11.7); MONO # 0.6 K/uL (0.0-0.8); NEUT # 3.8 K/uL (1.8-7.0); NEUT % 61.3 % (50.0-75.0); NRBC % 0.2 % (0.0-2.0); RBC 4.72 Mil/uL (4.40-5.90); WHITE BLOOD COUNT 6.2 K/uL (4.8-10.8)
[2018-02-27 08:49] LABS: ALBUMIN 3.6 g/dL (3.5-5.0); ALT/SGPT 36 U/L (21-72); AST/SGOT 25 U/L (17-59); BLOOD UREA NITROGEN 10 mg/dL (9-20); CALCIUM 8.9 mg/dl (8.6-10.4); GFR AFRICAN-AMERICAN > 60; GFR NON-AFRICAN AMERICAN > 60
--- NOTE | 2018-02-27 09:37 | CP.PCM.PN ---
Subjective - Date & Time of Evaluation Date of Evaluation: 02/27/18 Time of Evaluation: 07:00 - Subjective Subjective: Patient seen and examined at bedside. Reports persistent pain in the right knee but well controlled, no fevers or chills. Objective - Vital Signs/Intake and Output Vital Signs (last 24 hours): Temp Pulse Resp BP Pulse Ox 98 F 74 20 124/79 97 02/27/18 07:40 02/27/18 07:40 02/27/18 07:40 02/27/18 07:40 02/27/18 07:40 Intake and Output: 02/27/18 02/27/18 06:59 18:59 Intake Total 650 Output Total 500 Balance 150 - Medications Medications: Current Medications Famotidine (Pepcid) 20 mg PO BID [facility] Last Admin: 02/27/18 09:21 Dose: 20 mg Vancomycin/Sodium Chloride (Vancomycin 1 Gm/Ns 200 Ml) 1 gm in 200 mls @ 166.6 mls/hr IVPB Q12H [facility] PRN Reason: Protocol Stop: 03/03/18 11:01 Last Admin: 02/26/18 22:56 Dose: 166.6 mls/hr Ketorolac Tromethamine (Toradol) 10 mg PO Q8H PRN PRN Reason: Pain, moderate (4-7) Last Admin: 02/26/18 20:01 Dose: 10 mg Lorazepam (Ativan) 1 mg IVP Q6H PRN PRN Reason: Anxiety Nicotine (Nicoderm Cq) 1 patch TD DAILY [facility] Last Admin: 02/27/18 09:22 Dose: 1 patch Pneumococcal Polyvalent Vaccine (Pneumovax 23 Vaccine) 0.5 ml IM .ONCE ONE Stop: 02/27/18 10:01 Last Admin: 02/27/18 09:22 Dose: Not Given - Labs Labs: 02/27/18 07:59 02/27/18 07:59 - Constitutional Appears: Well, Non-toxic, No Acute Distress - Head Exam Head Exam: ATRAUMATIC, NORMOCEPHALIC - Eye Exam Eye Exam: Normal appearance. absent: Conjunctival injection, Scleral icterus - ENT Exam ENT Exam: Mucous Membranes Moist, Normal Oropharynx - Respiratory Exam Respiratory Exam: NORMAL BREATHING PATTERN. absent: Accessory Muscle Use, Respiratory Distress - Extremities Exam Extremities Exam: absent: Calf Tenderness, Pedal Edema Additional comments: Right knee with erythema and swelling, area of fluctuance. Able to flex knee - Neurological Exam Neurological Exam: Alert, Awake, Oriented x3 - Psychiatric Exam Psychiatric exam: Normal Affect, Normal Mood - Skin Skin Exam: Dry, Normal Color, Warm Additional comments: except as noted above Assessment and Plan - Assessment and Plan (Free Text) Assessment: 42M with subcutaneous abscess vs cellulitis of the right knee Plan: incision and drainage of the right knee at bedside F/U cultures of the fluid continue antibiotics PRN pain medication Medical management per primary Discussed with Dr. Luigi Otto, PGY2
--- NOTE | 2018-02-27 09:39 | CP.PCM.PN ---
Subjective - Date & Time of Evaluation Date of Evaluation: 02/27/18 Time of Evaluation: 09:39 - Subjective Subjective: Progress Note for Dr. Mirza's Service Pt seen and examined at bedside. He is scheduled for OR today- RLE debridement. No acute complaints. Continue purulent drainage from wound. No fevers/chills. Objective - Vital Signs/Intake and Output Vital Signs (last 24 hours): Temp Pulse Resp BP Pulse Ox 98 F 74 20 124/79 97 02/27/18 07:40 02/27/18 07:40 02/27/18 07:40 02/27/18 07:40 02/27/18 07:40 Intake and Output: 02/27/18 02/27/18 06:59 18:59 Intake Total 650 Output Total 500 Balance 150 - Medications Medications: Current Medications Famotidine (Pepcid) 20 mg PO BID [facility] Last Admin: 02/27/18 09:21 Dose: 20 mg Vancomycin/Sodium Chloride (Vancomycin 1 Gm/Ns 200 Ml) 1 gm in 200 mls @ 166.6 mls/hr IVPB Q12H [facility] PRN Reason: Protocol Stop: 03/03/18 11:01 Last Admin: 02/26/18 22:56 Dose: 166.6 mls/hr Ketorolac Tromethamine (Toradol) 10 mg PO Q8H PRN PRN Reason: Pain, moderate (4-7) Last Admin: 02/26/18 20:01 Dose: 10 mg Lorazepam (Ativan) 1 mg IVP Q6H PRN PRN Reason: Anxiety Nicotine (Nicoderm Cq) 1 patch TD DAILY [facility] Last Admin: 02/27/18 09:22 Dose: 1 patch Pneumococcal Polyvalent Vaccine (Pneumovax 23 Vaccine) 0.5 ml IM .ONCE ONE Stop: 02/27/18 10:01 Last Admin: 02/27/18 09:22 Dose: Not Given - Labs Labs: 02/27/18 07:59 02/27/18 07:59 - Constitutional Appears: No Acute Distress - Head Exam Head Exam: ATRAUMATIC, NORMOCEPHALIC - Eye Exam Eye Exam: EOMI, Normal appearance - ENT Exam ENT Exam: Mucous Membranes Moist - Respiratory Exam Respiratory Exam: Clear to Ausculation Bilateral, NORMAL BREATHING PATTERN - Cardiovascular Exam Cardiovascular Exam: REGULAR RHYTHM - GI/Abdominal Exam GI & Abdominal Exam: Soft. absent: Tenderness - Extremities Exam Additional comments: RLE wound dressed with bloody drainage visible - Neurological Exam Neurological Exam: Alert, Awake, Oriented x3 - Psychiatric Exam Psychiatric exam: Normal Affect, Normal Mood - Skin Skin Exam: Dry, Warm Assessment and Plan - Assessment and Plan (Free Text) Plan: Abscess of right knee Admit to med/surg Afebrile; Normal WBC Rt Knee XR (02/24/18): No evidence of acute displaced fx or dislocation. Small suprapatellar joint effusion (see full report) Toradol 10mg PO Q8H prn mod pain Consult ID- Dr. Maza, recs appreciated: -Vancomycin 1 gm IV Q12H - May need I&D Consult Gen surg- Dr. Meyers- Recs appreciated - I&D today 02/27/18 - Follow up wound cx's Blood cultures NGTD Hx HTN Well controlled Pt denies taking home medications EtOH detox Pt was in detox at [facility] prior to admission Ativan 1mg IV Q6H PRN Hx of Hepatitis C Hep C AB positive (2014) Patient denies treatment Tobacco Abuse D/O Nicoderm Patch Prophylaxis SCDs C/I Pepcid 20mg PO BID VTE C/I due to toradol at this time; pt mobile Case discussed with Dr. Mirza All Medical management as per Dr. Mirza
[2018-02-27] MEDS ORDERED: Lidocaine 1%/Epinephrine 1:100000 30 ml vial IJ ONE (09:57)
[2018-02-27] MEDS ORDERED: Pneumococcal 23-Valent Vaccine IM ONE (10:00)
--- NOTE | 2018-02-27 11:09 | PCM.SURG1 ---
Surgeon's Initial Post Op Note - Surgeon's Notes Surgeon: Dr. Meyers Bowling Pin Refinisher: Sonja Wade PGY1, Deepak Roy MS-4 Type of Anesthesia: Local Pre-Operative Diagnosis: Right Knee Abscess Operative Findings: Right Knee Loculated Abscess Post-Operative Diagnosis: Right knee abcess Operation Performed: Bedside Incision and Drainage of Right Knee Abscess Specimen/Specimens Removed: Wound cultures Estimated Blood Loss: EBL {In ML}: 5 Blood Products Given: N/A Drains Used: No Drains Post-Op Condition: Good Date of Surgery/Procedure: 02/27/18 Time of Surgery/Procedure: 11:08
[2018-02-27] MEDS: Vancomycin 1 gm/NS 200 ml 1 GM/200 ML BAG IVPB SCH ×2 (11:12→22:43)
--- NOTE | 2018-02-27 11:56 | CP.PCM.PN ---
Subjective - Date & Time of Evaluation Date of Evaluation: 02/27/18 Time of Evaluation: 07:00 - Subjective Subjective: s/p I and D cultures pending Objective - Vital Signs/Intake and Output Vital Signs (last 24 hours): Temp Pulse Resp BP Pulse Ox 98 F 74 20 124/79 97 02/27/18 07:40 02/27/18 07:40 02/27/18 07:40 02/27/18 07:40 02/27/18 07:40 Intake and Output: 02/27/18 02/27/18 06:59 18:59 Intake Total 650 Output Total 500 Balance 150 - Medications Medications: Current Medications Famotidine (Pepcid) 20 mg PO BID [facility] Last Admin: 02/27/18 09:21 Dose: 20 mg Vancomycin/Sodium Chloride (Vancomycin 1 Gm/Ns 200 Ml) 1 gm in 200 mls @ 166.6 mls/hr IVPB Q12H [facility] PRN Reason: Protocol Stop: 03/03/18 11:01 Last Admin: 02/27/18 11:12 Dose: 166.6 mls/hr Ketorolac Tromethamine (Toradol) 10 mg PO Q8H PRN PRN Reason: Pain, moderate (4-7) Last Admin: 02/26/18 20:01 Dose: 10 mg Nicotine (Nicoderm Cq) 1 patch TD DAILY [facility] Last Admin: 02/27/18 09:22 Dose: 1 patch - Labs Labs: 02/27/18 07:59 02/27/18 07:59 - Constitutional Appears: No Acute Distress - Head Exam Head Exam: NORMAL INSPECTION - Eye Exam Eye Exam: PERRL - ENT Exam ENT Exam: Mucous Membranes Dry - Neck Exam Neck Exam: absent: Thyromegaly - Respiratory Exam Respiratory Exam: Decreased Breath Sounds, Clear to Ausculation Bilateral - Cardiovascular Exam Cardiovascular Exam: REGULAR RHYTHM, +S1, +S2 - GI/Abdominal Exam GI & Abdominal Exam: Distended, Soft Assessment and Plan (1) Cellulitis of right knee Status: Acute (2) Drug dependence Status: Acute (3) Hepatitis C Status: Acute (4) History of OR (myocardial infarction) Status: Acute (5) Opioid dependence Status: Acute
--- NOTE | 2018-02-27 21:38 | CP.PCM.PN ---
Subjective - Date & Time of Evaluation Date of Evaluation: 02/27/18 Time of Evaluation: 07:00 - Subjective Subjective: clinically same Objective - Vital Signs/Intake and Output Vital Signs (last 24 hours): Temp Pulse Resp BP Pulse Ox 98.2 F 72 20 109/66 96 02/27/18 16:00 02/27/18 16:00 02/27/18 16:00 02/27/18 16:00 02/27/18 16:00 Intake and Output: 02/27/18 02/28/18 18:59 06:59 Intake Total 560 Balance 560 - Medications Medications: Current Medications Famotidine (Pepcid) 20 mg PO BID [facility] Last Admin: 02/27/18 17:13 Dose: 20 mg Vancomycin/Sodium Chloride (Vancomycin 1 Gm/Ns 200 Ml) 1 gm in 200 mls @ 166.6 mls/hr IVPB Q12H [facility] PRN Reason: Protocol Stop: 03/03/18 11:01 Last Admin: 02/27/18 11:12 Dose: 166.6 mls/hr Ketorolac Tromethamine (Toradol) 10 mg PO Q8H PRN PRN Reason: Pain, moderate (4-7) Last Admin: 02/27/18 13:40 Dose: 10 mg Nicotine (Nicoderm Cq) 1 patch TD DAILY [facility] Last Admin: 02/27/18 09:22 Dose: 1 patch - Labs Labs: 02/27/18 07:59 02/27/18 07:59 - Constitutional Appears: Well - Head Exam Head Exam: ATRAUMATIC, NORMAL INSPECTION, NORMOCEPHALIC - Eye Exam Eye Exam: EOMI, Normal appearance, PERRL Pupil Exam: NORMAL ACCOMODATION, PERRL - ENT Exam ENT Exam: Mucous Membranes Moist, Normal Exam - Neck Exam Neck Exam: Full ROM, Normal Inspection. absent: Lymphadenopathy - Respiratory Exam Respiratory Exam: Decreased Breath Sounds - Cardiovascular Exam Cardiovascular Exam: REGULAR RHYTHM, +S1, +S2 - GI/Abdominal Exam GI & Abdominal Exam: Soft, Diminished Bowel Sounds - Rectal Exam Rectal Exam: Deferred Assessment and Plan (1) Cellulitis of right knee Status: Acute (2) Chest pain Status: Acute (3) Drug abuse Status: Acute (4) Drug dependence Status: Acute (5) Hepatitis C Status: Acute (6) History of [place] (myocardial infarction) Status: Acute (7) Hypertension Status: Acute (8) Opioid dependence Status: Acute
[2018-02-28 08:00] LABS: BASO # 0.1 K/uL (0.0-0.2); BASO % 0.9 % (0.0-2.0); EOS # 0.2 K/uL (0.0-0.7); EOS % 3.9 % (0.0-4.0); HEMOGLOBIN 13.8 g/dL (12.0-18.0); LYMPH # 1.8 K/uL (1.0-4.3); LYMPH % 34.4 % (20.0-40.0); MEAN CELL VOLUME 83.7 fL (80.0-94.0); MEAN CORPUSCULAR HEMOGLOBIN 29.2 pg (27.0-31.0); MEAN CORPUSCULAR HGB CONC 34.9 g/dL (33.0-37.0); MEAN PLATELET VOLUME 7.8 fL (7.2-11.7); MONO # 0.4 K/uL (0.0-0.8); MONO % 7.9 % (0.0-10.0); NEUT # 2.8 K/uL (1.8-7.0); NEUT % 52.9 % (50.0-75.0); NRBC % 0.1 % (0.0-2.0); RBC 4.71 Mil/uL (4.40-5.90); RED CELL DISTRIBUTION WIDTH 12.6 % (11.5-14.5); WHITE BLOOD COUNT 5.3 K/uL (4.8-10.8)
--- NOTE | 2018-02-28 08:17 | CP.PCM.PN ---
Subjective - Date & Time of Evaluation Date of Evaluation: 02/28/18 Time of Evaluation: 08:15 - Subjective Subjective: PGY-[address] Mirza's service: Pt seen and examined at bedside. Nursing reports no acute events overnight. S/p I&D of right knee abscess yesterday. Patient denies pain in the extremity and admits walking on it without difficulty. He further denies fever, chills, headache, or chest pain. Objective - Vital Signs/Intake and Output Vital Signs (last 24 hours): Temp Pulse Resp BP Pulse Ox 97.8 F 68 20 115/75 96 02/28/18 07:29 02/28/18 07:29 02/28/18 07:29 02/28/18 07:29 02/28/18 07:29 Intake and Output: 02/28/18 02/28/18 06:59 18:59 Intake Total 960 Output Total 600 Balance 360 - Medications Medications: Current Medications Famotidine (Pepcid) 20 mg PO BID [facility] Last Admin: 02/27/18 17:13 Dose: 20 mg Vancomycin/Sodium Chloride (Vancomycin 1 Gm/Ns 200 Ml) 1 gm in 200 mls @ 166.6 mls/hr IVPB Q12H [facility] PRN Reason: Protocol Stop: 03/03/18 11:01 Last Admin: 02/27/18 22:43 Dose: 166.6 mls/hr Ketorolac Tromethamine (Toradol) 10 mg PO Q8H PRN PRN Reason: Pain, moderate (4-7) Last Admin: 02/27/18 22:42 Dose: 10 mg Nicotine (Nicoderm Cq) 1 patch TD DAILY [facility] Last Admin: 02/27/18 09:22 Dose: 1 patch - Labs Labs: 02/28/18 07:51 02/27/18 07:59 - Additional Findings Additional findings: - Constitutional Appears: No Acute Distress - Head Exam Head Exam: ATRAUMATIC, NORMOCEPHALIC - Eye Exam Eye Exam: EOMI, Normal appearance - ENT Exam ENT Exam: Mucous Membranes Moist - Respiratory Exam Respiratory Exam: Clear to Ausculation Bilateral, NORMAL BREATHING PATTERN - Cardiovascular Exam Cardiovascular Exam: REGULAR RHYTHM - GI/Abdominal Exam GI & Abdominal Exam: Soft. absent: Tenderness - Extremities Exam Additional comments: RLE wound dressed with drainage visible Line tracing cellulitis on LLE shows marked visible improvement - Neurological Exam Neurological Exam: Alert, Awake, Oriented x3 - Psychiatric Exam Psychiatric exam: Normal Affect, Normal Mood - Skin Skin Exam: Dry, Warm Assessment and Plan - Assessment and Plan (Free Text) Plan: Abscess of right knee Admit to med/surg Afebrile; Normal WBC Rt Knee XR (02/24/18): No evidence of acute displaced fx or dislocation. Small suprapatellar joint effusion (see full report) Toradol 10mg PO Q8H prn mod pain Consult ID- Dr. Maza, recs appreciated: -Vancomycin 1 gm IV Q12H - will ask ID for official duration needed for Vancomycin Consult Gen surg- Dr. Meyers- Recs appreciated - s/p I&D 02/27/18 - Toradol 10mg PO Q8h PRN - Follow up wound cx's Blood cultures NGTD Hx HTN Well controlled Pt denies taking home medications EtOH detox Pt was in detox at [facility] prior to admission Hx of Hepatitis C Hep C AB positive (2014) Patient denies treatment Tobacco Abuse D/O Nicoderm Patch Prophylaxis SCDs C/I Pepcid 20mg PO BID VTE C/I due to toradol at this time; pt mobile Disposition: Possible discharge to [facility] today pending Case discussed with Dr. Mirza All Medical management as per Dr. Mirza
[2018-02-28 08:30] LABS: ALBUMIN 3.6 g/dL (3.5-5.0); ALT/SGPT 35 U/L (21-72); AST/SGOT 25 U/L (17-59); BLOOD UREA NITROGEN 14 mg/dL (9-20); CALCIUM 8.8 mg/dl (8.6-10.4); GFR AFRICAN-AMERICAN > 60; GFR NON-AFRICAN AMERICAN > 60
--- NOTE | 2018-02-28 09:23 | CP.PCM.PN ---
Subjective - Date & Time of Evaluation Date of Evaluation: 02/28/18 Time of Evaluation: 07:00 - Subjective Subjective: clinically same Objective - Vital Signs/Intake and Output Vital Signs (last 24 hours): Temp Pulse Resp BP Pulse Ox 97.8 F 68 20 115/75 96 02/28/18 07:29 02/28/18 07:29 02/28/18 07:29 02/28/18 07:29 02/28/18 07:29 Intake and Output: 02/28/18 02/28/18 06:59 18:59 Intake Total 960 Output Total 600 Balance 360 - Medications Medications: Current Medications Famotidine (Pepcid) 20 mg PO BID [facility] Last Admin: 02/27/18 17:13 Dose: 20 mg Vancomycin/Sodium Chloride (Vancomycin 1 Gm/Ns 200 Ml) 1 gm in 200 mls @ 166.6 mls/hr IVPB Q12H [facility] PRN Reason: Protocol Stop: 03/03/18 11:01 Last Admin: 02/27/18 22:43 Dose: 166.6 mls/hr Ketorolac Tromethamine (Toradol) 10 mg PO Q8H PRN PRN Reason: Pain, moderate (4-7) Last Admin: 02/27/18 22:42 Dose: 10 mg Nicotine (Nicoderm Cq) 1 patch TD DAILY [facility] Last Admin: 02/27/18 09:22 Dose: 1 patch - Labs Labs: 02/28/18 07:51 02/28/18 07:51 - Constitutional Appears: Well - Head Exam Head Exam: ATRAUMATIC, NORMAL INSPECTION, NORMOCEPHALIC - Eye Exam Eye Exam: EOMI, Normal appearance, PERRL Pupil Exam: NORMAL ACCOMODATION, PERRL - ENT Exam ENT Exam: Mucous Membranes Moist, Normal Exam - Neck Exam Neck Exam: Full ROM, Normal Inspection. absent: Lymphadenopathy - Respiratory Exam Respiratory Exam: Decreased Breath Sounds - Cardiovascular Exam Cardiovascular Exam: REGULAR RHYTHM, +S1, +S2 - GI/Abdominal Exam GI & Abdominal Exam: Soft, Diminished Bowel Sounds - Rectal Exam Rectal Exam: Deferred Assessment and Plan (1) Cellulitis of right knee Status: Acute (2) Chest pain Status: Acute (3) Drug abuse Status: Acute (4) Drug dependence Status: Acute (5) Hepatitis C Status: Acute (6) History of [place] (myocardial infarction) Status: Acute (7) Hypertension Status: Acute (8) Opioid dependence Status: Acute
[2018-02-28] MEDS: Vancomycin 1 gm/NS 200 ml 1 GM/200 ML BAG IVPB SCH ×2 (10:43→22:13)
--- NOTE | 2018-02-28 16:18 | CP.PCM.PN ---
Subjective - Date & Time of Evaluation Date of Evaluation: 02/28/18 Time of Evaluation: 13:15 - Subjective Subjective: General surgery progress note for Dr. Rita Wade, PGY-1 Pt S & E at bedside. Pt reports some pain with packing changes this AM. Denies N & V, F & C, other complaints. Is tolerating diet. Objective - Vital Signs/Intake and Output Vital Signs (last 24 hours): Temp Pulse Resp BP Pulse Ox 97.8 F 68 20 115/75 96 02/28/18 07:29 02/28/18 07:29 02/28/18 07:29 02/28/18 07:29 02/28/18 07:29 Intake and Output: 02/28/18 02/28/18 06:59 18:59 Intake Total 960 560 Output Total 600 Balance 360 560 - Medications Medications: Current Medications Famotidine (Pepcid) 20 mg PO BID [facility] Last Admin: 02/28/18 09:45 Dose: 20 mg Vancomycin/Sodium Chloride (Vancomycin 1 Gm/Ns 200 Ml) 1 gm in 200 mls @ 166.6 mls/hr IVPB Q12H [facility] PRN Reason: Protocol Stop: 03/03/18 11:01 Last Admin: 02/28/18 10:43 Dose: 166.6 mls/hr Ketorolac Tromethamine (Toradol) 10 mg PO Q8H PRN PRN Reason: Pain, moderate (4-7) Last Admin: 02/28/18 12:54 Dose: 10 mg Nicotine (Nicoderm Cq) 1 patch TD DAILY [facility] Last Admin: 02/28/18 09:45 Dose: 1 patch - Labs Labs: 02/28/18 07:51 02/28/18 07:51 - Constitutional Appears: Non-toxic, No Acute Distress - Head Exam Head Exam: ATRAUMATIC, NORMAL INSPECTION, NORMOCEPHALIC - Eye Exam Eye Exam: EOMI, Normal appearance - ENT Exam ENT Exam: Mucous Membranes Moist, Normal Exam - Neck Exam Neck Exam: Full ROM, Normal Inspection - Respiratory Exam Respiratory Exam: Clear to Ausculation Bilateral, NORMAL BREATHING PATTERN - Cardiovascular Exam Cardiovascular Exam: REGULAR RHYTHM, +S1, +S2 - GI/Abdominal Exam GI & Abdominal Exam: Soft - Extremities Exam Extremities Exam: Tenderness (Left knee with dressing in place, clean/dry/intact , no surrounding erythema. ) - Neurological Exam Neurological Exam: Alert, Awake, Oriented x3 - Psychiatric Exam Psychiatric exam: Normal Affect, Normal Mood - Skin Skin Exam: Dry, Intact, Normal Color, Warm Assessment and Plan - Assessment and Plan (Free Text) Assessment: 42M w/Left knee abscess POD#1 bedside I & D Plan: Dressing and packing changed today Ok to d/c to [facility] Daily packing changes with iodoform x 3 days Dressing changes with packing changes Pain control and ABx as as per primary & ID teams WHITNEY attending Sheri, PGY-1
--- NOTE | 2018-02-28 16:56 | CP.PCM.PN ---
Subjective - Date & Time of Evaluation Date of Evaluation: 02/28/18 Time of Evaluation: 08:00 - Subjective Subjective: cultures pending IV rx in progress Vanco for IV infusion as out pt Objective - Vital Signs/Intake and Output Vital Signs (last 24 hours): Temp Pulse Resp BP Pulse Ox 98.2 F 58 L 20 120/77 98 02/28/18 16:00 02/28/18 16:00 02/28/18 16:00 02/28/18 16:00 02/28/18 16:00 Intake and Output: 02/28/18 02/28/18 06:59 18:59 Intake Total 960 560 Output Total 600 Balance 360 560 - Medications Medications: Current Medications Famotidine (Pepcid) 20 mg PO BID [facility] Last Admin: 02/28/18 09:45 Dose: 20 mg Vancomycin/Sodium Chloride (Vancomycin 1 Gm/Ns 200 Ml) 1 gm in 200 mls @ 166.6 mls/hr IVPB Q12H [facility] PRN Reason: Protocol Stop: 03/03/18 11:01 Last Admin: 02/28/18 10:43 Dose: 166.6 mls/hr Ketorolac Tromethamine (Toradol) 10 mg PO Q8H PRN PRN Reason: Pain, moderate (4-7) Last Admin: 02/28/18 12:54 Dose: 10 mg Nicotine (Nicoderm Cq) 1 patch TD DAILY [facility] Last Admin: 02/28/18 09:45 Dose: 1 patch - Labs Labs: 02/28/18 07:51 02/28/18 07:51 - Constitutional Appears: Non-toxic, Chronically Ill - Head Exam Head Exam: NORMOCEPHALIC - Eye Exam Eye Exam: PERRL - ENT Exam ENT Exam: Mucous Membranes Dry - Neck Exam Neck Exam: absent: Lymphadenopathy - Respiratory Exam Respiratory Exam: Decreased Breath Sounds - Cardiovascular Exam Cardiovascular Exam: REGULAR RHYTHM - GI/Abdominal Exam GI & Abdominal Exam: Distended, Soft Assessment and Plan (1) Cellulitis of right knee Status: Acute (2) Drug dependence Status: Acute (3) Hepatitis C Status: Acute (4) History of [place] (myocardial infarction) Status: Acute (5) Opioid dependence Status: Acute
[2018-03-01 00:10] VITALS: O2SAT 97
[2018-03-01 06:27] LABS: BASO % 0.8 % (0.0-2.0); EOS # 0.2 K/uL (0.0-0.7); LYMPH # 2.2 K/uL (1.0-4.3); LYMPH % 37.3 % (20.0-40.0); MEAN CELL VOLUME 83.3 fL (80.0-94.0); MEAN CORPUSCULAR HEMOGLOBIN 29.5 pg (27.0-31.0); MEAN CORPUSCULAR HGB CONC 35.4 g/dL (33.0-37.0); MEAN PLATELET VOLUME 7.9 fL (7.2-11.7); MONO # 0.5 K/uL (0.0-0.8); MONO % 8.2 % (0.0-10.0); NEUT # 2.9 K/uL (1.8-7.0); NEUT % 49.7 % (50.0-75.0); NRBC % 0.1 % (0.0-2.0); RBC 4.74 Mil/uL (4.40-5.90); RED CELL DISTRIBUTION WIDTH 12.9 % (11.5-14.5); WHITE BLOOD COUNT 5.9 K/uL (4.8-10.8)
[2018-03-01 06:43] LABS: ALB/GLOB RATIO 1.1 (1.0-2.1); ALBUMIN 3.7 g/dL (3.5-5.0); ALT/SGPT 38 U/L (21-72); AST/SGOT 28 U/L (17-59); BLOOD UREA NITROGEN 12 mg/dL (9-20); GFR AFRICAN-AMERICAN > 60; GFR NON-AFRICAN AMERICAN > 60
--- NOTE | 2018-03-01 09:09 | CP.PCM.PN ---
Subjective - Date & Time of Evaluation Date of Evaluation: 03/01/18 Time of Evaluation: 09:10 - Subjective Subjective: PGY-[address] Mirza's service: Pt seen and examined at bedside. No acute events reported overnight. Patient is aware of placement pending status for subacute. Patient denies fever, chills, headache, shortness of breath, chest pain, nausea, vomiting or diarrhea. Objective - Vital Signs/Intake and Output Vital Signs (last 24 hours): Temp Pulse Resp BP Pulse Ox 98.7 F 68 20 117/77 97 03/01/18 08:00 03/01/18 08:00 03/01/18 08:00 03/01/18 08:00 03/01/18 08:00 Intake and Output: 03/01/18 03/01/18 06:59 18:59 Intake Total 660 Balance 660 - Medications Medications: Current Medications Famotidine (Pepcid) 20 mg PO BID [facility] Last Admin: 02/28/18 17:48 Dose: 20 mg Vancomycin/Sodium Chloride (Vancomycin 1 Gm/Ns 200 Ml) 1 gm in 200 mls @ 166.6 mls/hr IVPB Q12H [facility] PRN Reason: Protocol Stop: 03/03/18 11:01 Last Admin: 02/28/18 22:13 Dose: 166.6 mls/hr Ketorolac Tromethamine (Toradol) 10 mg PO Q8H PRN PRN Reason: Pain, moderate (4-7) Last Admin: 03/01/18 06:18 Dose: 10 mg Nicotine (Nicoderm Cq) 1 patch TD DAILY [facility] Last Admin: 02/28/18 09:45 Dose: 1 patch - Labs Labs: 03/01/18 06:16 03/01/18 06:16 - Additional Findings Additional findings: - Constitutional Appears: No Acute Distress - Head Exam Head Exam: ATRAUMATIC, NORMOCEPHALIC - Eye Exam Eye Exam: EOMI, Normal appearance - ENT Exam ENT Exam: Mucous Membranes Moist - Respiratory Exam Respiratory Exam: Clear to Ausculation Bilateral, NORMAL BREATHING PATTERN - Cardiovascular Exam Cardiovascular Exam: REGULAR RHYTHM - GI/Abdominal Exam GI & Abdominal Exam: Soft. absent: Tenderness - Extremities Exam Additional comments: RLE wound dressed with drainage visible Line tracing cellulitis on LLE shows marked visible improvement - Neurological Exam Neurological Exam: Alert, Awake, Oriented x3 - Psychiatric Exam Psychiatric exam: Normal Affect, Normal Mood - Skin Skin Exam: Dry, Warm Assessment and Plan - Assessment and Plan (Free Text) Assessment: Abscess of right knee Admit to med/surg Afebrile; Normal WBC Rt Knee XR (02/24/18): No evidence of acute displaced fx or dislocation. Small suprapatellar joint effusion (see full report) Toradol 10mg PO Q8H prn mod pain Consult ID- Dr. Maza, recs appreciated: -Vancomycin 1 gm IV Q12H - will ask ID for official duration needed for Vancomycin Consult Gen surg- Dr. Meyers- Recs appreciated - s/p I&D 02/27/18 - Toradol 10mg PO Q8h PRN - Follow up wound cx's Blood cultures NGTD Hx HTN Well controlled Pt denies taking home medications EtOH detox Pt was in detox at [facility] prior to admission Hx of Hepatitis C Hep C AB positive (2014) Patient denies treatment Tobacco Abuse D/O Nicoderm Patch Prophylaxis SCDs C/I Pepcid 20mg PO BID [facility] C/I due to toradol at this time; pt mobile Disposition: Authorization pending to [facility] Case discussed with Dr. Mirza All Medical management as per Dr. Mirza
[2018-03-01] MEDS: Vancomycin 1 gm/NS 200 ml 1 GM/200 ML BAG IVPB SCH (10:00)
--- NOTE | 2018-03-01 10:56 | CP.PCM.PN ---
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 PT IS ALREADY D/C AND WAITING FOR AUTH TO GO TO REHAB. I DISCUSSED THESE FINDINGS WITH DR. OLIVEIRA. PER DR. OLIVEIRA, WILL CONTINUE VANCO 1 GM IV Q12 HOURS ALREADY BEING GIVEN X4 MORE DAYS (LAST DOSE TO BE GIVEN ON 03/05/18). FOLLOWING THE COMPLETION OF IV CVANCO, PT TO BE PLACED ON CLINDAMYCIN 300 MG PO TID X7 DAYS (START 03/06/18-03/12/18). D/C PLAN AND PAPERWORK UPDATED, SEE CHANGES MADE BELOW. NO FURTHER ORDERS: Prescription: Vancomycin 1gm Q12H IVPB x 4 more days (last dose 03/05/18) After Vancomycin IV is completed on 03/05/18, please start Clindamycin 300 mg PO TID for 7 days (start 03/06/18 and last dose to be given on 03/12/18 evening). Objective - Vital Signs/Intake and Output Vital Signs (last 24 hours): Temp Pulse Resp BP Pulse Ox 98.7 F 68 20 117/77 97 03/01/18 08:00 03/01/18 08:00 03/01/18 08:00 03/01/18 08:00 03/01/18 08:00 Intake and Output: 03/01/18 03/01/18 06:59 18:59 Intake Total 660 Balance 660 - Medications Medications: Current Medications Famotidine (Pepcid) 20 mg PO BID [facility] Last Admin: 03/01/18 10:00 Dose: 20 mg Vancomycin/Sodium Chloride (Vancomycin 1 Gm/Ns 200 Ml) 1 gm in 200 mls @ 166.6 mls/hr IVPB Q12H [facility] PRN Reason: Protocol Stop: 03/03/18 11:01 Last Admin: 03/01/18 10:00 Dose: 166.6 mls/hr Ketorolac Tromethamine (Toradol) 10 mg PO Q8H PRN PRN Reason: Pain, moderate (4-7) Last Admin: 03/01/18 06:18 Dose: 10 mg Nicotine (Nicoderm Cq) 1 patch TD DAILY [facility] Last Admin: 03/01/18 10:00 Dose: 1 patch - Labs Labs: 03/01/18 06:16 03/01/18 06:16
--- NOTE | 2018-03-01 11:21 | CP.PCM.PN ---
Subjective - Date & Time of Evaluation Date of Evaluation: 03/01/18 Time of Evaluation: 07:00 - Subjective Subjective: clinically same Objective - Vital Signs/Intake and Output Vital Signs (last 24 hours): Temp Pulse Resp BP Pulse Ox 98.7 F 68 20 117/77 97 03/01/18 08:00 03/01/18 08:00 03/01/18 08:00 03/01/18 08:00 03/01/18 08:00 Intake and Output: 03/01/18 03/01/18 06:59 18:59 Intake Total 660 Balance 660 - Medications Medications: Current Medications Famotidine (Pepcid) 20 mg PO BID [facility] Last Admin: 03/01/18 10:00 Dose: 20 mg Vancomycin/Sodium Chloride (Vancomycin 1 Gm/Ns 200 Ml) 1 gm in 200 mls @ 166.6 mls/hr IVPB Q12H [facility] PRN Reason: Protocol Stop: 03/03/18 11:01 Last Admin: 03/01/18 10:00 Dose: 166.6 mls/hr Ketorolac Tromethamine (Toradol) 10 mg PO Q8H PRN PRN Reason: Pain, moderate (4-7) Last Admin: 03/01/18 06:18 Dose: 10 mg Nicotine (Nicoderm Cq) 1 patch TD DAILY [facility] Last Admin: 03/01/18 10:00 Dose: 1 patch - Labs Labs: 03/01/18 06:16 03/01/18 06:16 - Constitutional Appears: Well - Head Exam Head Exam: ATRAUMATIC, NORMAL INSPECTION, NORMOCEPHALIC - Eye Exam Eye Exam: EOMI, Normal appearance, PERRL Pupil Exam: NORMAL ACCOMODATION, PERRL - ENT Exam ENT Exam: Mucous Membranes Moist, Normal Exam - Neck Exam Neck Exam: Full ROM, Normal Inspection. absent: Lymphadenopathy - Respiratory Exam Respiratory Exam: Decreased Breath Sounds - Cardiovascular Exam Cardiovascular Exam: REGULAR RHYTHM, +S1, +S2 - GI/Abdominal Exam GI & Abdominal Exam: Soft, Diminished Bowel Sounds - Rectal Exam Rectal Exam: Deferred Assessment and Plan (1) Cellulitis of right knee Status: Acute (2) Chest pain Status: Acute (3) Drug abuse Status: Acute (4) Drug dependence Status: Acute (5) Hepatitis C Status: Acute (6) History of [place] (myocardial infarction) Status: Acute (7) Hypertension Status: Acute (8) Opioid dependence Status: Acute
[2018-03-01 16:07] VITALS: BP 114/69; PULSE 62; TEMP 98.2
--- NOTE | 2018-03-01 18:14 | OP ---
PROCEDURE DATE: 02/27/2018 SURGEON: Yuko Meyers MD EMPLOYMENT INTERVIEWER: Dr. Wade. ANESTHESIA: Local 1% lidocaine. PREOPERATIVE DIAGNOSIS: Abscess, right knee. POSTOPERATIVE DIAGNOSIS: Abscess, right knee. PROCEDURE: Incision and drainage of right knee abscess. DESCRIPTION OF OPERATION: This was a bedside procedure. The skin overlying the right knee was prepped and draped in the usual sterile manner. A small area of fluctuance was identified. The skin overlying this was infiltrated with 1% lidocaine. An incision was made with drainage of purulent material and after irrigation, a small packing was placed followed by a dry sterile dressing. The patient tolerated the procedure well. Estimated blood loss for the procedure was 5 mL. Yuko Meyers MD
== END 2018-03-01 19:30 | DRG 277 ==
LOC: C.ER 07:57 → C.9E 10:31 → C.3T 10:49 → C.9E 11:15 → C.3T 12:03 → OBSVTOIN 02-24 13:40
PROVIDERS: ADMIT Internal Medicine Nephrology; ATTEND Internal Medicine Nephrology
PROC: 0S9C0ZX Drainage of Right Knee Joint, Open Approach, Diagnostic (ICD-10-PCS; principal; 2018-02-27)
DX: L02.415 Cutaneous abscess of right lower limb (principal); B19.20 Unspecified viral hepatitis C without hepatic coma; F11.20 Opioid dependence, uncomplicated; F14.10 Cocaine abuse, uncomplicated; L03.115 Cellulitis of right lower limb; F17.210 Nicotine dependence, cigarettes, uncomplicated; I10 Essential (primary) hypertension; I25.2 Old myocardial infarction; Z95.5 Presence of coronary angioplasty implant and graft; M25.461 Effusion, right knee